=== PATIENT | female | born 1950 | race Caucasian/White ===

== ENCOUNTER → 2018-07-05 | Outpatient (CLI) | payer MEDICARE, OTHER | LOC: LAB 10:33 | PROVIDERS: ATTEND Internal Medicine Cardiovascular Disease | DX: I25.10 Atherosclerotic heart disease of native coronary artery without angina pectoris (principal) | CPT/HCPCS: 36415; 83880; 85379 ==

== ENCOUNTER → 2018-08-30 | Outpatient (CLI) | payer MEDICARE, OTHER ==
[~2018-08-30] MED LIST: ASPI-757 PO; BECL10.6; CARB15DR72 OP; CYCL1DRO6 OP; SODI15DR18 OP; SODI3.5O14 OP
--- NOTE | 2018-08-30 11:41 | RADIOLOGY IMAGING REPORT ---
FACILITY: [facility] PATIENT NAME: Idania Gallardo : 1950 MR: [id number] V: [id number] EXAM DATE: ORDERING PHYSICIAN: VICKI KIRK TECHNOLOGIST: Location: [facility] - [place] Patient: Idania Gallardo : 1950 Visit/Account:[id number] Date of Sevice: 08/30/2018 DEXA Scan Clinical history: Screening. Comparison: DEXA scan from 02/12/2016. LUMBAR SPINE: The bone mineral density (BMD) measured from L1-L4 correlates with a Z-score of -0.2 and a T-score of -0.7 which is Normal as defined by the World Health Organization. The corresponding risk of fractur e in the lumbar spine is 1-2 times increased compared with a young adult reference population. This value has decrease by 4.4 % since the prior study. More than 5% change is considered significant. HIP: Bone mineral density (BMD) measured in the LEFT total hip region correlates with a Z-score -1 and a T -score of -1.7 which is osteopenia as defined by the World Health Organization. The corresponding ri sk of fracture in the hip is 3-4 times increased compared to a young adult reference population. This value has decrease by 13.4 % since the prior study. More than 5% change is considered significant. T score left femoral neck -1.4 Bone mineral density (BMD) measured in the Femoral Neck region measures 0.848 g/cm?. IMPRESSION: 1. Lumbar spine: Normal. There has been 4.4% decrease in the bone mineral density since the previou s exam. 2. Left Total Hip: Osteopenia. There has been 13.4% decrease in the bone mineral density since the previous exam. 3. Femoral Neck: Bone Mineral Density is 0.848 g/cm? The next DEXA scan of this patient should include the following sites: L1-L4 and the left hip. FRAX? WHO Fracture Risk Assessment Tool link: <http://www.shef.ac.uk/FRAX/tool.jsp?locationValue=9> PLEASE NOTE: 1) The World Health Organization defines low BMD as follows: T-score Normal > -1 Osteopenia < -1 and > -2.5 Osteoporosis < -2.5 without fractures Established osteoporosis < -2.5 with fractures 2) In general, you may wish to consider: Diagnosis Treatment Follow-up DEXA Normal BMD Prevention 2-3 years Osteopenia Prevention/therapy 1-2 years Osteoporosis Therapy Yearly 3) Fracture risk estimated from the T-score is more accurate for vertebral fractures (often spontane ous) than for hip fractures. Report Dictated By: Lauren Sanchez MD at 08/30/2018 11:33 AM Report E-Signed By: Lauren Sanchez MD at 08/30/2018 11:34 AM [id number]:[id number]
--- NOTE | 2018-08-31 17:00 | RADIOLOGY IMAGING REPORT ---
FACILITY: [facility] - [place] PATIENT NAME: EBONI BROWNING : [id number] MR: [id number] V: [id number] EXAM DATE: [id number] ORDERING PHYSICIAN: VICKI KIRK TECHNOLOGIST: Emilia Lainez PROCEDURE: BILATERAL DIGITAL SCREENING MAMMOGRAM WITH CAD ASSISTED INTERPRETATION & 3D TOMOSYNTHESIS. REASON FOR STUDY: Screening. FAMILY HISTORY OF BREAST CANCER: Maternal aunt in her 80's. FAMILY HISTORY OF OVARIAN CANCER: Uterine cancer of paternal grandmother and a sister. BREAST PROCEDURES/TREATMENTS: None. COMPARISON: 02/12/16. VIEWS OBTAINED: 2D & 3D full field CC & MLO. BREAST DENSITY: There are scattered areas of fibroglandular density throughout the breasts. MAMMOGRAM FINDINGS: The parenchymal pattern has remained stable allowing for difference in mammographic technique & patient positioning. IMPRESSION: BIRADS 1: Negative. DIAGNOSTIC CATEGORY 1--NEGATIVE. RECOMMENDATIONS: ROUTINE MAMMOGRAM AND CLINICAL EVALUATION. Dictated by: Lauren Sanchez M.D. on 08/30/2018 at 16:43 Transcribed by: SHAYAN on 08/31/2018 at 8:13 Approved by: Lauren Sanchez M.D. on 08/31/2018 at 16:57 [facility]
== END ==
LOC: MAMO 00:41
PROVIDERS: ATTEND Nurse Practitioner Psychiatric/Mental Health
DX: Z12.31 Encounter for screening mammogram for malignant neoplasm of breast (principal); Z00.00 Encounter for general adult medical examination without abnormal findings; M85.88 Other specified disorders of bone density and structure, other site
CPT/HCPCS: 77063; 77067; 77080

== ENCOUNTER → 2018-09-22 | Outpatient (CLI) | payer MEDICARE, OTHER ==
[~2018-09-22] MED LIST changes: +REGADENOSON 0.4 MG/5 ML SYR ONE
--- NOTE | 2018-09-22 13:37 | RADIOLOGY IMAGING REPORT ---
FACILITY: [facility] PATIENT NAME: Idania Gallardo : 1950 MR: [id number] V: [id number] EXAM DATE: ORDERING PHYSICIAN: JUSTINA AGUIRRE TECHNOLOGIST: Location: [facility] Patient: Idania Gallardo : 1950 Visit/Account:[id number] Date of Sevice: 09/22/2018 EXAMINATION: Single isotope SPECT imaging with regadenoson infusion and gated SPECT imaging. DATE OF EXAMINATION: 09/22/2018. DATE OF INTERPRETATION: 09/22/2018. REQUESTING PHYSICIAN: JUSTINA AGUIRRE. INDICATION: The patient is a 68-year-old female evaluated for CAD. PROCEDURE: After informed consent the patient received an intravenous injection of 12.9 mCi of Tc-99 m sestamibi followed at an appropriate time interval by rest imaging. The patient then subsequently received an intravenous infusion of 0.4 mg of regadenoson per protocol without complication. Resting heart rate was 59 bpm with a peak heart rate of 92 bpm. Blood pressure at rest was 100 / 72 and fol lowing infusion was 134 / 77. Baseline EKG demonstrates sinus rhythm. There were no EKG changes of ischemia following infusion. Symptoms were nonspecific. The patient then received an intravenous in jection of 31.0 mCi of Tc-99m sestamibi followed by stress imaging. RAW DATA: Examination of the summed raw data revealed a good quality study. MYOCARDIAL PERFUSION: The tomographic images demonstrate abnormal myocardial perfusion. There is a s mall inferolateral defect that is moderate in severity at rest. With stress, this becomes a medium-si zed defect that is moderate in severity. There is no TID. GATED IMAGES: The gated images demonstrate ejection fraction 55% with normal wall motion and thicken ing. IMPRESSION: 1. Nondiagnostic Lexiscan stress ECG 2. Abnormal myocardial perfusion scan, with evidence of a small inferolateral infarct with mild laura -infarct ischemia. 3. Normal LV systolic function; LVEF 55%. 4. Based on the results of this exam, the patient appears to be at intermediate risk for future cardi ovascular events. Report Dictated By: Guy Rodriguez at 09/22/2018 1:26 PM Report E-Signed By: Guy Rodriguez at 09/22/2018 1:30 PM WSN:[id number]
== END ==
LOC: NUC 01:24
PROVIDERS: ATTEND Internal Medicine Cardiovascular Disease
DX: R94.39 Abnormal result of other cardiovascular function study (principal)
CPT/HCPCS: 78452; 93017; A9500; J2785